=== PATIENT | female | born 1985 | race Caucasian/White ===

== ENCOUNTER → 2022-12-20 09:52 | Outpatient (CLI) | payer OTHER, SELFPAY ==
[2022-12-20 12:17] LABS: Influenza A - CEPHEID Flu A NEGATIVE (NEGATIVE); Influenza B - CEPHEID Flu B NEGATIVE (NEGATIVE); Respiratory Syncytial Virus Negative (Negative)
[2022-12-20 12:18] LABS: COVID-19 CEPHEID 4-PLEX PCR Negative (Negative)
== END ==
PROVIDERS: Family Provider Internal Medicine; PCP Registered Nurse Diabetes Educator; Visit Provider Nurse Practitioner Family
DX: R09.89 Other specified symptoms and signs involving the circulatory and respiratory systems (principal); J06.9 Acute upper respiratory infection, unspecified
CPT/HCPCS: 0241U

== ENCOUNTER 2022-12-21 17:06 | Emergency (ER) | payer OTHER, SELFPAY ==
[2022-12-21] VITALS (10 sets, daily range): BP systolic 109–123; BP diastolic 69–84; PULSE 64–81; RESP 16–24; TEMP 36.8; O2SAT 91–96; BMI 25.0
--- NOTE | 2022-12-21 17:42 | DI.RAD.S_ITS ---
PROCEDURE: XR CHEST 1V INDICATIONS: chest pain TECHNIQUE: One view of the chest was acquired. COMPARISON: None. FINDINGS: Surgical changes and devices: None. Lungs and pleura: There is moderate diffuse reticulonodular pulmonary opacity. No pleural effusions or pneumothorax. Mediastinum: Mediastinal contours appear normal. Heart size is normal. Bones and chest wall: No suspicious bony lesions. Overlying soft tissues appear unremarkable. IMPRESSION: Moderate atypical pneumonia. Dictated by: Dirk Hernandez M.D. on 12/21/2022 at 18:16 Approved by: Dirk Hernandez M.D. on 12/21/2022 at 18:16
[2022-12-21 18:56] LABS: COVID19 -Nasal RAPID Negative (Negative)
[2022-12-21 19:00] LABS: Add Manual Diff / Slide Review NO; Basophils Absolute Auto 0 /uL (0-100); Basophils Percent Auto 0.8 % (0-2); Eosinophils Absolute Auto 200 /uL (0-450); Eosinophils Percent Auto 3.3 % (2-4); Hematocrit 40.3 % (36-46); Lymphocytes Absolute Auto 2400 /uL (1100-4500); Lymphocytes Percent Auto 36.6 % (25-40); Mean Corpuscular HGB Conc 34.8 % (30-36); Mean Corpuscular Hemoglobin 34.7 PG (26-34); Mean Corpuscular Volume 99.8 fL (80-100); Monocytes Absolute Auto 1300 /uL (0-900); Monocytes Percent Auto 19.9 % (3-14); Neutrophils Absolute Auto 2600 /uL (1500-7000); Neutrophils Percent Auto 39.4 % (50-75); Platelet Count 253 X10^3/uL (150-400); Red Blood Cell Count 4.04 X10^6/uL (4.0-5.2); Red Cell Distribution Width 13.2 % (11.6-14.8); White Blood Cell Count 6.6 X10^3/uL (4.5-11.0)
[2022-12-21 19:07] LABS: Alanine Aminotransferase 33 IU/L (<35); Albumin 4.1 g/dL (3.5-5.0); Albumin Globulin Ratio 1.4 (1.0-2.8); Alkaline Phosphatase 54 U/L (38-126); Aspartate Aminotransferase 28 IU/L (14-36); BUN Creatinine Ratio 16.7 (6-22); Bilirubin Total 0.4 mg/dL (0.2-1.3); Blood Urea Nitrogen 15 mg/dL (7-17); Calcium 9.4 mg/dL (8.4-10.2); Carbon Dioxide 28 mmol/L (22-32); Chloride 103 mmol/L (98-107); Creatine Kinase 38 U/L (30-135); Estimated Glomerular Filt Rate > 60 mL/min (>60); Globulin 2.9 g/dL (1.7-4.1); Glucose 98 mg/dL (70-100); HEMOLYSIS < 15 (0-50); Lipase 172 U/L (23-300); Sodium 138 mmol/L (137-145)
[2022-12-21 19:09] LABS: Prothrombin Time 11.7 SECONDS (10.1-12.7)
[2022-12-21 19:12] LABS: PTT Partial Thromboplastin Tim 29 SECONDS (26-36)
[2022-12-21 19:28] LABS: Troponin I < 0.012 ng/mL (0.01-0.034)
[2022-12-21 20:59] LABS: D Dimer 483 ng/ml (<500)
--- NOTE | 2022-12-21 22:17 | ED_ITS ---
HPI - Chest Pain General Chief Complaint: Chest Pain Stated Complaint: SOB, Chest pain, headache x2 days Time Seen by Provider: 12/21/22 22:16 Source: patient Mode of arrival: Ambulatory Limitations: no limitations History of Present Illness HPI narrative: 7-year-old female with history of psoriatic arthritis on Humira for the past 3 months and methotrexate for 2 years as well as Paxil. This is a 37-year-old fem lloyd who comes with complaint of shortness of breath, and that she can not catch her breath. She denies cough, cold or congestive symptoms. Patient denies fevers or chills. She describes substernal, pleuritic chest pain without radiation. 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 No nausea or vomiting. No diarrhea or constipation. No urinary symptoms. No hemoptysis. She is noticed she is had a little bit increasing her typical frequency of nosebleeds. Patient denies any swelling in her extremities. No there GI symptoms. Patient states she is continued to feel increasingly short of breath and not improving. No active tobacco, has smoked in the past. Denies illicit. She does follow with rheumatology for her psoriatic arthritis. Patient was seen in the walk-in clinic yesterday started on a Z-Mathew she had the 1st 500 mg dose. She denies any surgeries. Allergic to sulfa and pertussis vaccine. No tobacco, occasional alcohol, no illicit. She notes dad had a stroke at 42 and has history of hypertension dyslipidemia. Related Data Home Medications Medication Instructions Recorded Confirmed folic acid 800 mcg PO BID 07/27/22 12/20/22 methotrexate 2.5 mg PO .COMPLEX 07/27/22 12/20/22 Previous Rx's Medication Instructions Recorded folic acid 800 mcg tablet 1.6 mg PO DAILY #180 tabs 07/27/22 paroxetine HCl 30 mg tablet 30 mg PO DAILY #90 tabs 07/27/22 azithromycin 250 mg tablet See Rx Instructions PO .COMPLEX #6 12/20/22 tabs benzonatate 100 mg capsule 100 mg PO BID-TID PRN cough #30 12/20/22 caps doxycycline hyclate 100 mg tablet 100 mg PO BID #20 tabs 12/22/22 doxycycline hyclate 100 mg tablet 100 mg PO BID #20 tabs 12/22/22 Allergies Allergy/AdvReac Type Severity Reaction Status Date / Time Pertussis Vaccines Allergy Unknown Verified 12/21/22 17:38 [PERTUSSIS VACCINES] Sulfa (Sulfonamide Allergy Unknown Verified 12/21/22 17:38 Antibiotics) [SULFA (SULFONAMIDE ANTIBIOTICS)] bandaid adhesive Allergy Unknown Uncoded 12/21/22 17:38 Review of Systems Review of Systems ROS Unobtainable: All systems reviewed & are unremarkable except as noted in HPI and below Patient History Medical History ADHD (~2017) Anxiety (~2007) Bulimia (~1999) Carpal tunnel syndrome (~2008) Chicken pox (~1984) Chronic back pain (~2001) Depression (~2007) Psoriasis (~2003) Psoriatic arthritis (~1998) Restless leg syndrome (~2020) Scoliosis (~1983) Surgical History Anesthesia Deviated septum (~2001) Remove/insert IUD (~08/12/11) Warts of foot (~2000) Family History Father Diabetes mellitus History of heart disease Hyperlipidemia Hypertension Mental health problem Stroke Mother Cancer Melanoma Hypertension Hyperlipidemia Brother Hypertension Hyperlipidemia Mental health problem Grandmother History of heart disease Social History Smoking Status: Former smoker Smoking Status: Former smoker Substance Use Type: does not use Exam Narrative Exam Narrative: GEN: well nourished, well appearing female, alert and oriented x 3, patient appears to be in mild distress. HEENT: Atraumatic, pupils are equal round reactive to light, extraocular movements are intact, nares are clear, TMs are clear with no fluid, there is no conjunctival pallor. Throat is clear without any exudates, erythema, tonsillar enlargement or uvular deviation, no meningeal signs. HEART: Regular rate and rhythm without murmur, clicks, rubs. pulses are equal in upper and lower extremities. No JVD. No edema bilateral lower extremities. LUNGS:Lungs clear to auscultation, no wheezes, rales, crackles, chest moves symmetrically, patient is not tachypneic but does appear to have a little bit increased work of breathing when talking. No accessory muscle use. ABD:bowel sounds normal, soft, non-tender, no guarding, rebound, rigidity, no masses noted, no hepatosplenomegaly :No CVA tenderness MSCL: Non-tender, no muscle atrophy, muscles strength 5/5 upper and lower extremities, full range of motion, normal gait NEURO:CN 2-12 intact, sensation normal Initial Vital Signs Initial Vital Signs: Vital Signs Temperature 98.2 F 12/21/22 17:38 Pulse Rate 81 12/21/22 17:38 Respiratory Rate 18 12/21/22 17:38 Blood Pressure 110/76 12/21/22 17:38 Pulse Oximetry 96 12/21/22 17:38 Oxygen Delivery Method Room Air 12/21/22 17:38 Course Orders Ordered: Discontinued Medications Doxycycline Hyclate (Doxycycline Hyclate 100 Mg Tablet) 100 mg PO NOW ONE Stop: 12/22/22 00:56 Last Admin: 12/22/22 01:04 Dose: 100 mg Documented By: HNG Ketorolac Tromethamine (Ketorolac 30 Mg/Ml Vial) 15 mg IV NOW ONE Stop: 12/21/22 22:36 Last Admin: 12/21/22 22:53 Dose: 15 mg Documented By: Vital Signs Vital signs: Vital Signs - 8 hr 12/21/22 17:38 12/21/22 19:37 12/21/22 19:43 Temperature 98.2 F Pulse Rate 81 71 Respiratory Rate 18 20 Blood Pressure 110/76 111/72 Pulse Oximetry 96 96 Oxygen Delivery Method Room Air 12/21/22 19:43 12/21/22 20:00 12/21/22 20:00 Temperature Pulse Rate 64 66 Respiratory Rate 20 16 Blood Pressure 115/73 Pulse Oximetry 95 94 Oxygen Delivery Method 12/21/22 20:30 12/21/22 20:30 12/21/22 21:00 Temperature Pulse Rate 70 Respiratory Rate 20 Blood Pressure 109/69 116/72 Pulse Oximetry 92 Oxygen Delivery Method 12/21/22 21:00 12/21/22 21:30 12/21/22 21:30 Temperature Pulse Rate 75 71 Respiratory Rate 22 24 Blood Pressure 116/77 Pulse Oximetry 91 91 Oxygen Delivery Method 12/21/22 22:00 12/21/22 22:00 12/21/22 22:30 Temperature Pulse Rate 73 Respiratory Rate 22 Blood Pressure 122/78 123/84 Pulse Oximetry 94 Oxygen Delivery Method 12/21/22 22:30 Temperature Pulse Rate 79 Respiratory Rate 20 Blood Pressure Pulse Oximetry 94 Oxygen Delivery Method MDM - Chest Pain Lab Data 12/21/22 18:43 12/21/22 18:43 Labs: Lab Results 12/21/22 12/21/22 12/21/22 Range/Units 18:33 18:43 18:43 WBC 6.6 (4.5-11.0) X10^3/uL RBC 4.04 (4.0-5.2) X10^6/uL Hgb 14.0 (12.0-16.0) g/dL Hct 40.3 (36-46) % MCV 99.8 (80-100) fL MCH 34.7 H (26-34) PG MCHC 34.8 (30-36) % RDW 13.2 (11.6-14.8) % Plt Count 253 (150-400) X10^3/uL Neut % (Auto) 39.4 L (50-75) % Lymph % (Auto) 36.6 (25-40) % [place] % (Auto) 19.9 H (3-14) % Eos % (Auto) 3.3 (2-4) % Baso % (Auto) 0.8 (0-2) % Neut # (Auto) 2600 (5050-1956) /uL Lymph # (Auto) 2400 (3413-3275) /uL [place] # (Auto) 1300 H (0-900) /uL Eos # (Auto) 200 (0-450) /uL Baso # (Auto) 0 (0-100) /uL PT 11.7 (10.1-12.7) SECONDS INR 1.0 (0.9-1.3) APTT 29 (26-36) SECONDS D-Dimer (<500) ng/ml Sodium (137-145) mmol/L Potassium (3.4-5.1) mmol/L Chloride (98-107) mmol/L Carbon Dioxide (22-32) mmol/L BUN (7-17) mg/dL Creatinine (0.52-1.04) mg/dL Estimated GFR (>60) mL/min BUN/Creatinine Ratio (6-22) Glucose (70-100) mg/dL Calcium (8.4-10.2) mg/dL Magnesium (1.6-2.3) mg/dL Total Bilirubin (0.2-1.3) mg/dL AST (14-36) IU/L ALT (<35) IU/L Alkaline Phosphatase (38-126) U/L Total Creatine Kinase (30-135) U/L CK-MB (CK-2) CK-MB (CK-2) Rel Index Troponin I (0.01-0.034) ng/mL Total Protein (6.3-8.2) g/dL Albumin (3.5-5.0) g/dL Globulin (1.7-4.1) g/dL Albumin/Globulin Ratio (1.0-2.8) Lipase (23-300) U/L SARS-CoV-2 (PCR) Negative (Negative) 12/21/22 12/21/22 12/21/22 Range/Units 18:43 18:43 22:50 WBC (4.5-11.0) X10^3/uL RBC (4.0-5.2) X10^6/uL Hgb (12.0-16.0) g/dL Hct (36-46) % MCV (80-100) fL MCH (26-34) PG MCHC (30-36) % RDW (11.6-14.8) % Plt Count (150-400) X10^3/uL Neut % (Auto) (50-75) % Lymph % (Auto) (25-40) % [place] % (Auto) (3-14) % Eos % (Auto) (2-4) % Baso % (Auto) (0-2) % Neut # (Auto) (4843-8021) /uL Lymph # (Auto) (3523-7066) /uL [place] # (Auto) (0-900) /uL Eos # (Auto) (0-450) /uL Baso # (Auto) (0-100) /uL PT (10.1-12.7) SECONDS INR (0.9-1.3) APTT (26-36) SECONDS D-Dimer 483 (<500) ng/ml Sodium 138 (137-145) mmol/L Potassium 4.0 (3.4-5.1) mmol/L Chloride 103 (98-107) mmol/L Carbon Dioxide 28 (22-32) mmol/L BUN 15 (7-17) mg/dL Creatinine 0.90 (0.52-1.04) mg/dL Estimated GFR > 60 (>60) mL/min BUN/Creatinine Ratio 16.7 (6-22) Glucose 98 (70-100) mg/dL Calcium 9.4 (8.4-10.2) mg/dL Magnesium 2.0 (1.6-2.3) mg/dL Total Bilirubin 0.4 (0.2-1.3) mg/dL AST 28 (14-36) IU/L ALT 33 (<35) IU/L Alkaline Phosphatase 54 (38-126) U/L Total Creatine Kinase 38 (30-135) U/L CK-MB (CK-2) TNP CK-MB (CK-2) Rel Index TNP Troponin I < 0.012 < 0.012 (0.01-0.034) ng/mL Total Protein 7.0 (6.3-8.2) g/dL Albumin 4.1 (3.5-5.0) g/dL Globulin 2.9 (1.7-4.1) g/dL Albumin/Globulin Ratio 1.4 (1.0-2.8) Lipase 172 (23-300) U/L SARS-CoV-2 (PCR) (Negative) Point of Care Testing Test Results Negative Urine Dip Bedside Urine Glucose Negative Bedside Urine Bilirubin - Negative Bedside Urine Ketone - Negative Urine Specific [place] 1.015 Bedside Urine Occult Blood - Negative Bedside Urine pH 6.0 Bedside Urine Protein - Negative Bedside Urine Urobilinogen - Negative Bedside Urine Nitrite - Negative Bedside Urine Leukocytes - Negative Esterase Imaging Data CT scan - chest: Radiologist's Impression: Close Chest CTA (Signed) Juan Daniel Cohen - 12/21/22 Chest X-Ray (Signed) Dirk Hernandez - 12/21/22 Launch?[address] [address] [address] Scan Report Signed Patient: Kristin Herbert MR#: [id number] : 1985 Acct:[id number] Age/Sex: 37 / F Date of Service: 12/21/22 Loc: ED Accession Number: [id number] ?? Procedure: CT angio chest PE protocol Ordering Provider: Yola Franklin D.O. PROCEDURE:? CT ANGIO CHEST PE PROTOCOL ? INDICATIONS:? pleuritic chest pain, hx psoriati arthritis, on humira, mtx ? TECHNIQUE:? After the administration of intravenous contrast, 2 mm thick sections acquired from the pulmonary apices to the posterior costophrenic angles.? 3-dimensional maximum intensity projection (MIP) coronal and sagittal reformats were then acquired through the thorax.? For radiation dose reduction, the following was used:? automated exposure control, adjustment of mA and/or kV according to patient size.? ? COMPARISON:? [facility], CR, XR CHEST 1V, 12/21/2022, 17:53. ? FINDINGS:? Image quality:? Excellent.? ? Pulmonary arteries:? Pulmonary arteries are normal in size, and demonstrate no intraluminal filling defects to suggest central pulmonary embolism.? ? Lower Neck: No lymphadenopathy by size criteria. Thyroid:? Visualized thyroid demonstrates no discrete nodules. Axillae: No lymphadenopathy by size criteria. Chest Wall:? Unremarkable.? Bones: Visualized osseous structures demonstrate no suspicious lesions. ? Lungs and Airways:? There are extensive bilateral clustered ground-glass opacities with areas of perihilar confluent consolidation.? Mild septal thickening also demonstrated bilaterally.? The trachea and central airways are patent. Pleura: No pneumothorax or pleural effusions.? ? Heart: Heart size is normal.? No pericardial effusion. Thoracic Vessels: The thoracic aorta is normal in size.? Mediastinum and Ronel:? There are confluent enlarged mediastinal and bilateral hilar lymph nodes, right greater than left. Esophagus: No wall thickening.? There is a small hiatal hernia. ? Abdomen:? Visualized upper abdominal solid organs appear normal in the early arterial phase of enhancement.? ? IMPRESSION:? ? 1. Bilateral clustered ground-glass opacities with associated confluent perihilar consolidation.? The findings are nonspecific but likely represent an atypical pneumonia. ? 2. Confluent enlarged mediastinal and bilateral hilar lymph nodes are nonspecific but likely reactive.? Consider short-term follow-up to demonstrate resolution. ? ? Dictated by: Juan Daniel Cohen M.D. on 12/21/2022 at 23:50 ? ? Approved by: Juan Daniel Cohen M.D. on 12/21/2022 at 23:5 ECG Data Attestation: I personally reviewed and interpreted this ECG as follows: Prior ECG tracings: not available for review Interpretation: Sinus rhythm rate 88 MI 148 QRS is 76 QTC 442. Patient has not inverted T-wave in lead 3. No ST elevation depression. No priors for comparison. MDM Narrative Medical decision making narrative: This is a 37-year-old female with known psoriatic arthritis is likely immune compromised on Humira and methotrexate. She is had shortness of breath with pleuritic substernal chest pain for the last several days she started on Z-Mathew yesterday without improvement. She been as low as 91% on room air no tachycardia, no fever, no hypotension chest x-ray did not show clear changes, CBC, CMP, LFTs troponin were all negative. Dimer is negative. COVID swab is negative. Patient's note that dad did have clotting issues and had a stroke at age 42 decision was made to obtain CT angio and patient was found to have extensive bilateral clustered ground-glass opacities with areas of perihilar confluent consolidation, mild septal thickening bilaterally, no pulmonary emboli. Confluent enlarged mediastinal and bilateral hilar lymph nodes right greater than left. Discussed with patient she is tolerating with her oxygen will change her antibiotic, she is to follow up with her intermediate accountant to see if they need to stop or adjust her medications in the short term and we discussed she needs short-term follow-up with repeat imaging to evaluate for other causes or sources and to make sure that she is improving in her imaging as well as her symptoms. Patient states she has a pulse oximeter at home discuss that she needs to return if she is having lows. Discharge Plan Departure Patient Disposition: Home Clinical Impression: Bilateral pneumonia Instructions: DI for Pneumonia -- Adult Activity Restrictions/Additional Instructions: Please follow-up for recheck, I would like your intermediate accountant know that you do have these changes on your imaging. It is recommended you have follow-up repeat imaging to make sure your imaging improves. If you have a pulse oximeter at home, you can use this to monitor your oxygen if your oxygen level is dipping below 90% please return for re-evaluation. You can take Tylenol up to a 1000 mg every 6 hours and/or ibuprofen up to 600 mg every 6 hours as needed for pain. You have bilateral pneumonia on your CT, take antibiotics until completely gone. Would recommend changing your antibiotic from azithromycin to doxycycline. Prescription sent to [facility]. Please return for fevers, new or worsening chest pain, shortness of breath, lightheadedness or passing out, persistent vomiting, swelling in her extremities or other new or concerning changes. Prescriptions: New doxycycline hyclate 100 mg tablet 100 mg PO BID Qty: 20 0RF doxycycline hyclate 100 mg tablet 100 mg PO BID Qty: 20 0RF No Action azithromycin 250 mg tablet See Rx Instructions PO .COMPLEX Qty: 6 0RF Rx Instructions: For 250 mg dose pack: take 500 mg today (day 1), then 250 mg for 4 days (days 2-5) PO benzonatate 100 mg capsule 100 mg PO BID-TID PRN (Reason: cough) Qty: 30 0RF paroxetine HCl 30 mg tablet 30 mg PO DAILY Qty: 90 1RF folic acid 800 mcg tablet 1.6 mg PO DAILY Qty: 180 3RF folic acid 800 mcg PO BID methotrexate 2.5 mg PO .COMPLEX Rx Instructions: 2.5 mg orally; 10 pills throughout the week. Referrals: Farhan Modi ARNP [Primary Care Provider] - Stand Alone Forms: Patient Portal/API
--- NOTE | 2022-12-21 22:35 | DI.CT.S_ITS ---
PROCEDURE: CT ANGIO CHEST PE PROTOCOL INDICATIONS: pleuritic chest pain, hx psoriati arthritis, on humira, mtx TECHNIQUE: After the administration of intravenous contrast, 2 mm thick sections acquired from the pulmonary apices to the posterior costophrenic angles. 3-dimensional maximum intensity projection (MIP) coronal and sagittal reformats were then acquired through the thorax. For radiation dose reduction, the following was used: automated exposure control, adjustment of mA and/or kV according to patient size. COMPARISON: [facility], CR, XR CHEST 1V, 12/21/2022, 17:53. FINDINGS: Image quality: Excellent. Pulmonary arteries: Pulmonary arteries are normal in size, and demonstrate no intraluminal filling defects to suggest central pulmonary embolism. Lower Neck: No lymphadenopathy by size criteria. Thyroid: Visualized thyroid demonstrates no discrete nodules. Axillae: No lymphadenopathy by size criteria. Chest Wall: Unremarkable. Bones: Visualized osseous structures demonstrate no suspicious lesions. Lungs and Airways: There are extensive bilateral clustered ground-glass opacities with areas of perihilar confluent consolidation. Mild septal thickening also demonstrated bilaterally. The trachea and central airways are patent. Pleura: No pneumothorax or pleural effusions. Heart: Heart size is normal. No pericardial effusion. Thoracic Vessels: The thoracic aorta is normal in size. Mediastinum and Ronel: There are confluent enlarged mediastinal and bilateral hilar lymph nodes, right greater than left. Esophagus: No wall thickening. There is a small hiatal hernia. Abdomen: Visualized upper abdominal solid organs appear normal in the early arterial phase of enhancement. IMPRESSION: 1. Bilateral clustered ground-glass opacities with associated confluent perihilar consolidation. The findings are nonspecific but likely represent an atypical pneumonia. 2. Confluent enlarged mediastinal and bilateral hilar lymph nodes are nonspecific but likely reactive. Consider short-term follow-up to demonstrate resolution. Dictated by: Juan Daniel Cohen M.D. on 12/21/2022 at 23:50 Approved by: Juan Daniel Cohen M.D. on 12/21/2022 at 23:53
[2022-12-21] MEDS: KETOROLAC 30 MG/ML VIAL 15 MG IV (22:53)
[2022-12-21 23:23] LABS: Troponin I < 0.012 ng/mL (0.01-0.034)
[2022-12-22] VITALS: PULSE 74; RESP 22; O2SAT 92
[2022-12-22 00:07] VITALS: BP 125/80; PULSE 66; O2SAT 94
--- NOTE | 2022-12-22 00:07 | PC.NURSE ---
95% o2 while ambulating -rh
[2022-12-22 00:30] VITALS: PULSE 70; O2SAT 92
[2022-12-22] MEDS: DOXYCYCLINE HYCLATE 100 MG TABLET PO (01:04)
== END 2022-12-22 01:09 | disposition home or self-care (01) ==
PROVIDERS: Emergency Medicine; Emergency Provider Emergency Medicine; Family Provider Internal Medicine; PCP Registered Nurse Diabetes Educator
DX: J18.9 Pneumonia, unspecified organism (principal); R07.9 Chest pain, unspecified; Z20.822 Contact with and (suspected) exposure to COVID-19
CPT/HCPCS: 36415; 71045; 71275; 80053; 81003; 81025; 82550; 83690; 83735; 84484; 85025; 85379; 85610; 85730; 87635; 93005; 96374; 99284; C9803; J1885; Q9967

== ENCOUNTER → 2023-01-31 09:38 | Outpatient (CLI) | payer OTHER, SELFPAY ==
--- NOTE | 2023-01-31 09:39 | DI.RAD.S_ITS ---
PROCEDURE: XR CHEST 2V INDICATIONS: recovering from pneumonia TECHNIQUE: 2 views of the chest were acquired. COMPARISON: [facility], CR, XR CHEST 1V, 12/21/2022, 17:53. FINDINGS: Surgical changes and devices: None. Lungs and pleura: Lungs are clear. No pleural effusions or pneumothorax. Mediastinum: Mediastinal contours are normal. Heart size is normal. Bones and chest wall: No suspicious bony abnormalities. Soft tissues appear unremarkable. IMPRESSION: No focal infiltrate, pleural effusion or pneumothorax is seen on the current study. Dictated by: Parth Ambrosio M.D. on 01/31/2023 at 11:03 Approved by: Parth Ambrosio M.D. on 01/31/2023 at 11:03
== END ==
PROVIDERS: Family Provider Internal Medicine; PCP Registered Nurse Diabetes Educator; Referring Provider Nurse Practitioner Family; Visit Provider Nurse Practitioner Family
DX: J18.9 Pneumonia, unspecified organism (principal)
CPT/HCPCS: 71046

== ENCOUNTER → 2023-05-04 10:44 | Outpatient (CLI) | payer OTHER, SELFPAY ==
--- NOTE | 2023-05-04 | DI.RAD.S_ITS ---
PROCEDURE: FL SHOULDER INJECTION MR/CT RT INDICATIONS: RIGHT SHOULDER PAIN COMPARISON: [facility], MR, MR SHOULDER RT W CON, 05/04/2023, 11:38. [facility], CR, XR CHEST 2V, 01/31/2023, 9:34. TECHNIQUE: The indications, alternatives, benefits, risks, and complications of the procedure were explained to the patient. Written informed consent was obtained and placed in the chart. The shoulder was examined fluoroscopically and a site for needle placement chosen for entry into the glenohumeral joint from an anterior approach. The skin was prepped and draped in a sterile fashion, and 1% lidocaine infiltrated from skin down to joint capsule. A spinal needle was inserted into the glenohumeral joint, and a small amount of iodinated contrast media injected to confirm intra-articular placement of the needle tip. This was followed by approximately 12 mL dilute solution of a gadolinium containing MR contrast agent. The needle was removed and a dressing was applied. The patient was given postprocedural instructions and sent to the MR suite for MR imaging. FINDINGS: A single fluoroscopic spot image demonstrates intra-articular location of injected iodinated contrast. IMPRESSION: Successful fluoroscopically guided administration of dilute Gadolinium solution into the shoulder joint for MR arthrogram. Dictated by: Tory Valenzuela M.D. on 05/04/2023 at 12:35 Approved by: Tory Valenzuela M.D. on 05/04/2023 at 12:35
--- NOTE | 2023-05-04 | DI.MRI.S_ITS ---
PROCEDURE: MR SHOULDER RT W CON INDICATIONS: RIGHT SHOULDER PAIN TECHNIQUE: After the administration of 12 mL of dilute intra-articular Gadolinium contrast, oblique coronal T1 and T2 spin echo with fat saturation, oblique sagittal T1 spin echo with and without fat saturation, oblique sagittal T2 fast spin echo with fat saturation, axial T1 spin echo with fat saturation through the shoulder. COMPARISON: [facility], , ID SHOULDER INJECTION MR/CT RT, 05/04/2023, 11:04. FINDINGS: Image quality: Excellent. Rotator cuff: There is focal moderate grade partial intrasubstance tearing at the supraspinatus tendon at the posterior footprint measuring 7 mm in anterior-posterior dimension without uptake of intra-articular contrast material. Mild osseous edema is seen in the adjacent portion of the greater tuberosity. There is mild supraspinatus and infraspinatus tendinosis. The teres minor tendon is intact. [id number] contrast material is seen in the subscapularis muscle and tendon, which is likely related to the arthrogram injection. There is no significant rotator cuff muscle atrophy. Bones and bursae: Mild osseous edema is seen at the greater tuberosity without a definite fracture line, likely reactive to the adjacent rotator cuff tendon tear versus secondary to traction trabecular bone injury. No focal glenohumeral cartilage defect. Mild degenerative changes are seen at the acromioclavicular joint. There is a small amount of noncommunicating fluid in the subacromial/subdeltoid bursa. No filling defect is seen in the glenohumeral joint space. Capsule and soft tissues: Focal hyperintense signal at the anterosuperior labrum is favored to be secondary to a normal variant sublabral foramen rather than a meniscal tear. The proximal biceps long head tendon is intact. The glenohumeral ligaments are intact. IMPRESSION: 1. Moderate grade partial intrasubstance tearing of the supraspinatus tendon at the posterior insertion measuring 7 mm in anterior-posterior dimension. No uptake of intra-articular contrast material is seen. Mild supraspinatus and infraspinatus tendinosis. 2. Mild osseous edema at the greater tuberosity may be reactive to the adjacent rotator cuff tendon tear or secondary to traction trabecular bone injury or less likely an osseous contusion. No fracture line is seen. 3. Focal hyperintense signal at the anterosuperior labrum is favored to represent a normal variant sublabral foramen rather than a labral tear. The labrum is otherwise intact. 4. Mild acromioclavicular joint osteoarthrosis. Approved by: Neville Garcia M.D. on 05/04/2023 at 14:38
== END ==
PROVIDERS: Family Provider Internal Medicine; PCP Registered Nurse Diabetes Educator; Referring Provider Internal Medicine Rheumatology; Visit Provider Internal Medicine Rheumatology
DX: M75.111 Incomplete rotator cuff tear or rupture of right shoulder, not specified as traumatic (principal); M19.011 Primary osteoarthritis, right shoulder
CPT/HCPCS: 23350; 73222; 77002

== ENCOUNTER → 2023-10-16 14:56 | Outpatient (CLI) | payer OTHER, SELFPAY ==
[2023-10-16 15:39] LABS: Influenza A - CEPHEID Flu A NEGATIVE (NEGATIVE); Influenza B - CEPHEID Flu B NEGATIVE (NEGATIVE); Respiratory Syncytial Virus Negative (Negative)
[2023-10-16 15:45] LABS: COVID-19 CEPHEID 4-PLEX PCR Negative (Negative)
== END ==
PROVIDERS: Family Provider Internal Medicine; PCP Registered Nurse Diabetes Educator; Visit Provider Physician Assistant
DX: R05.9 Cough, unspecified (principal)
CPT/HCPCS: 0241U

== ENCOUNTER → 2023-10-23 10:47 | Outpatient (CLI) | payer OTHER, SELFPAY ==
--- NOTE | 2023-10-23 10:49 | DI.RAD.S_ITS ---
PROCEDURE: XR CHEST 2V INDICATIONS: eval prolonged cough TECHNIQUE: 2 views of the chest were acquired. COMPARISON: [facility], CR, XR CHEST 2V, 01/31/2023, 9:34. FINDINGS: Surgical changes and devices: None. Lungs and pleura: Lungs are clear. No pleural effusions or pneumothorax. Mediastinum: Mediastinal contours are normal. Heart size is normal. Bones and chest wall: No suspicious bony abnormalities. Soft tissues appear unremarkable. IMPRESSION: No acute cardiopulmonary abnormality is seen. Dictated by: Alcon Garcia M.D. on 10/23/2023 at 11:25 Approved by: Alcon Garcia M.D. on 10/23/2023 at 11:26
== END ==
LOC: RAD 10:48
PROVIDERS: Family Provider Internal Medicine; PCP Registered Nurse Diabetes Educator; Referring Provider Registered Nurse Diabetes Educator; Visit Provider Registered Nurse Diabetes Educator
DX: R05.9 Cough, unspecified (principal)
CPT/HCPCS: 71046

== ENCOUNTER → 2023-11-27 13:46 | Outpatient (CLI) | payer OTHER, SELFPAY ==
--- NOTE | 2023-11-27 13:56 | DI.MRI.S_ITS ---
PROCEDURE: MR ANKLE RT WO CON INDICATIONS: RIGHT HEEL PAIN TECHNIQUE: Noncontrast sagittal T1 spin echo and T2 fast spin echo with fat saturation, axial proton density fast spin echo and T2 fast spin echo with fat saturation, coronal T1 spin echo and T2 fast spin echo with fat saturation through the ankle/hindfoot. COMPARISON: [facility] [place], CR, XR FOOT 3+ VIEWS BILATERAL, 11/14/2023, 9:19. FINDINGS: Image quality: Excellent. Bones and joints: No acute trabecular bone injury or fracture. No hindfoot coalitions. No osteochondral injuries of the talar dome. Medial structures: The deltoid ligament and the spring ligament complex are intact. The posterior tibialis tendon demonstrates mild tenosynovitis. The flexor digitorum longus and flexor hallucis longus tendons are intact. The posterior tibial neurovascular bundle appears normal within the tarsal tunnel, without extrinsic mass effect. Lateral structures: The anterior talofibular, calcaneofibular, and posterior talofibular ligaments are intact. The anterior and posterior tibiofibular ligaments are intact. The peroneus longus and brevis tendons demonstrate moderate tendinosis. The sinus tarsi demonstrates normal fatty signal. Anterior structures: The tibialis anterior, extensor hallucis longus, and extensor digitorum longus tendons appear intact. Posterior and plantar structures: Achilles tendon is intact. Proximal plantar fascia is mildly thickened with mild adjacent soft tissue and osseous edema. No focal fascial tear is seen. No acute osseous fracture. No abductor digiti minimi muscle atrophy to suggest Solomon neuropathy. IMPRESSION: 1. Mild acute on chronic proximal plantar fasciitis with surrounding soft tissue and osseous edema. No acute fascial tear or acute osseous fracture is seen. 2. Moderate peroneus brevis and longus tendinosis. 3. Mild distal posterior tibialis tenosynovitis. Approved by: Neville Garcia M.D. on 11/27/2023 at 21:31
== END ==
LOC: MRI 13:46
PROVIDERS: Family Provider Internal Medicine; PCP Registered Nurse Diabetes Educator; Referring Provider Orthopaedic Surgery Foot and Ankle Surgery; Visit Provider Orthopaedic Surgery Foot and Ankle Surgery
DX: M65.861 Other synovitis and tenosynovitis, right lower leg (principal); M72.2 Plantar fascial fibromatosis; M79.671 Pain in right foot
CPT/HCPCS: 73721

== ENCOUNTER → 2024-01-22 14:57 | Outpatient (CLI) | payer OTHER, SELFPAY ==
--- NOTE | 2024-01-22 14:58 | DI.RAD.S_ITS ---
PROCEDURE: XR HAND RT MIN 3V INDICATIONS: eval 1 year hx pain 4th and 5th distal metatarsals TECHNIQUE: 3 views of the hand(s) acquired. COMPARISON: None. FINDINGS: Bones: No fractures or dislocations. Carpal bones are normally aligned. No suspicious bony lesions. Soft tissues: No suspicious soft tissue calcifications. IMPRESSION: No acute bony abnormality. If there are persistent symptoms or clinical suspicion for pathology, then repeat radiographs or advanced imaging (CT or MRI) may be considered for further evaluation. Dictated by: Omi De La Rosa M.D. on 01/22/2024 at 18:09 Approved by: Omi De La Rosa M.D. on 01/22/2024 at 18:14
== END ==
PROVIDERS: Family Provider Internal Medicine; PCP Registered Nurse Diabetes Educator; Referring Provider Registered Nurse Diabetes Educator; Visit Provider Registered Nurse Diabetes Educator
DX: M79.641 Pain in right hand (principal)
CPT/HCPCS: 73130

== ENCOUNTER → 2024-01-23 07:53 | Outpatient (CLI) | payer OTHER, SELFPAY ==
[2024-01-23 09:18] LABS: Add Manual Diff / Slide Review NO; Basophils Absolute Auto 100 /uL (0-100); Basophils Percent Auto 0.6 % (0-2); Eosinophils Absolute Auto 200 /uL (0-450); Hematocrit 39.6 % (36-46); Hemoglobin 13.7 g/dL (12.0-16.0); Lymphocytes Absolute Auto 2000 /uL (1100-4500); Lymphocytes Percent Auto 20.1 % (25-40); Mean Corpuscular HGB Conc 34.6 % (30-36); Mean Corpuscular Hemoglobin 34.7 PG (26-34); Mean Corpuscular Volume 100.1 fL (80-100); Monocytes Absolute Auto 700 /uL (0-900); Monocytes Percent Auto 7.3 % (3-14); Neutrophils Absolute Auto 6900 /uL (1500-7000); Platelet Count 276 X10^3/uL (150-400); Red Blood Cell Count 3.95 X10^6/uL (4.0-5.2); Red Cell Distribution Width 13.3 % (11.6-14.8); White Blood Cell Count 9.9 X10^3/uL (4.5-11.0)
[2024-01-23 09:48] LABS: Alanine Aminotransferase 16 IU/L (<35); Albumin 4.3 g/dL (3.5-5.0); Albumin Globulin Ratio 1.5 (1.0-2.8); Alkaline Phosphatase 67 U/L (38-126); Aspartate Aminotransferase 20 IU/L (14-36); BUN Creatinine Ratio 16.9 (6-22); Bilirubin Total 0.8 mg/dL (0.2-1.3); Blood Urea Nitrogen 15 mg/dL (7-17); C-Reactive Protein Quant < 0.5 mg/dL (<1.0); Calcium 9.2 mg/dL (8.4-10.2); Carbon Dioxide 27 mmol/L (22-32); Chloride 103 mmol/L (98-107); Cholesterol 214 mg/dL (140-199); Estimated Glomerular Filt Rate > 60 mL/min (>60); Globulin 2.8 g/dL (1.7-4.1); Glucose 100 mg/dL (70-100); HDL Cholesterol 62 mg/dL (40-60); HEMOLYSIS < 15 (0-50); LDL Cholesterol Calculated 128 mg/dL (<100); Magnesium 2.3 mg/dL (1.6-2.3); Potassium 4.4 mmol/L (3.4-5.1); Sodium 136 mmol/L (137-145); Total Protein 7.1 g/dL (6.3-8.2); Triglycerides 120 mg/dL (35-150)
[2024-01-23 10:02] LABS: Follicle Stimulating Hormone 3.04 mIU/mL; Luteinizing Hormone 3.39 mIU/mL; Prolactin 12.9 ng/mL (3.0-18.6)
[2024-01-23 10:03] LABS: Free T4, Direct Thyroxine 0.83 ng/dL (0.78-2.19)
[2024-01-23 10:17] LABS: Testosterone 33.5 ng/dL (5.71-77.0)
[2024-01-23 10:18] LABS: Estradiol, Total 50.7 pg/mL; Thyroid Stimulating Hormone 2.32 uIU/mL (0.47-4.68)
[2024-01-23 10:35] LABS: Vitamin B12 838 pg/mL (239-931)
[2024-01-25 14:13] LABS: Insulin Level Total 11.6 uIU/mL (2.6-24.9)
[2024-01-26 08:09] LABS: Dehydroepiandrosterone Sulfate 87.9 ug/dL (57.3-279.2)
== END ==
PROVIDERS: Family Provider Internal Medicine; PCP Registered Nurse Diabetes Educator; Referring Provider Registered Nurse Diabetes Educator; Visit Provider Registered Nurse Diabetes Educator
DX: R25.2 Cramp and spasm (principal); R63.5 Abnormal weight gain; R20.0 Anesthesia of skin; Z00.00 Encounter for general adult medical examination without abnormal findings; L68.0 Hirsutism; N92.6 Irregular menstruation, unspecified; L40.50 Arthropathic psoriasis, unspecified
CPT/HCPCS: 36415; 80053; 80061; 82607; 82627; 82670; 83001; 83002; 83036; 83498; 83525; 83735; 84146; 84403; 84439; 84443; 85025; 86140

== ENCOUNTER → 2024-09-28 15:47 | Outpatient (CLI) | payer OTHER, SELFPAY ==
--- NOTE | 2024-09-28 15:49 | DI.MG.S_ITS ---
BILATERAL DIGITAL SCREENING MAMMOGRAM 3D/2D WITH CAD: 09/28/2024 CLINICAL: Baseline exam. Routine screening. No prior exams were available for comparison. The breasts are heterogeneously dense, which may obscure small masses (category c / 51-75% glandular tissue). Current study was also evaluated with a Computer Aided Detection (CAD) system. No significant masses, calcifications, or other findings are seen in either breast. IMPRESSION: NEGATIVE There is no mammographic evidence of malignancy. A 1 year screening mammogram is recommended. Based on the Tyrer Cuzick model (a risk assessment model) the patient's lifetime risk is 12.7% and her 10 year risk is 1.6%. According to the ACR, ACS, and NCCN guidelines, an annual breast MRI exam along with mammogram is recommended if the patient's lifetime risk is 20% or greater. This exam was interpreted at Station ID: [id number]. NOTE: For mammograms, a report in lay terms will be sent to the patient. Approximately 15% of breast malignancies will not be visualized mammographically. In the management of a palpable breast mass, a negative mammogram must not discourage biopsy of a clinically suspicious lesion. Electronically Signed By: Omi [email or web address]/[email or web address]:09/30/2024 07:56:17 letter sent: Normal Exam ACR BI-RADS Category 1: Negative
== END ==
PROVIDERS: Family Provider Internal Medicine; PCP Registered Nurse Diabetes Educator; Referring Provider Registered Nurse Diabetes Educator; Visit Provider Registered Nurse Diabetes Educator
DX: Z12.31 Encounter for screening mammogram for malignant neoplasm of breast (principal); R92.333 Mammographic heterogeneous density, bilateral breasts
CPT/HCPCS: 77063; 77067